=== PATIENT | male | born 1930 | race Caucasian/White ===

== ENCOUNTER 2017-08-01 20:05 | Inpatient (IN) | payer MEDICARE, BC ==
[~2017-08-01 20:05] MED LIST: LORazepam 2 MG/ML Syringe IVPUSH ONE
[2017-08-01 20:59] LABS: CHLORIDE,CL 102 mmol/L (101-111); SODIUM,NA 136 mmol/L (135-145)
--- NOTE | 2017-08-01 22:15 | EDM.PDOC ---
ED HPI GENERAL MEDICAL PROBLEM - General Chief Complaint: Neurological Problem Stated Complaint: [id number] falling a lot Time Seen by Provider: 08/01/17 20:50 Source of Information: Reports: Patient, Family, Old Records, RN Notes Reviewed History Limitations: Reports: Altered Mental Status (Confused) - History of Present Illness INITIAL COMMENTS - FREE TEXT/NARRATIVE: ED with daughter with report of increasing confusion, agitation and hallucinations. Tonight seeing people in room that were not there, seeing flying geese and sparrows one way here with daughter. Patient had been at home with until yesterday, has reported to be overwhelmed, unable to care for him and becoming afraid as his agitation increased. - Related Data Allergies Allergy/AdvReac Type Severity Reaction Status Date / Time adhesive tape Allergy Rash Verified 08/01/17 23:01 diltiazem [From Cardizem] Allergy Rash Verified 08/01/17 23:01 Home Meds: Home Meds Aspirin 325 mg PO DAILY 08/01/17 [History] Cholecalciferol (Vitamin D3) [Vitamin D3] 2,000 unit PO DAILY 08/01/17 [History] Clopidogrel [Plavix] 75 mg PO DAILY 08/01/17 [History] Docusate Sodium 100 mg PO BID 08/01/17 [History] Iron,Carbonyl/Ascorbic Acid [Vitron-C Tablet] 1 each PO DAILY 08/01/17 [History] Lisinopril 20 mg PO DAILY 08/01/17 [History] Nitroglycerin 0.4 mg SL ASDIRECTED 08/01/17 [History] Omeprazole 20 mg PO DAILY 08/01/17 [History] QUEtiapine [SEROquel] 25 mg PO BEDTIME 08/01/17 [History] Rivastigmine Tartrate [Rivastigmine] 4.6 mg PO DAILY 08/01/17 [History] Simvastatin [Zocor] 20 mg PO BEDTIME 08/01/17 [History] buPROPion [buPROPion XL] 300 mg PO BEDTIME 08/01/17 [History] Past Medical History Neurological History: Reports: CVA, Other (See Below) Other Neuro History: dementia Social & Family History - Tobacco Use Smoking Status *Q: Never Smoker Second Hand Smoke Exposure: No - Recreational Drug Use Recreational Drug Use: No ED ROS GENERAL - Review of Systems Review Of Systems: See Below Constitutional: Reports: Weight Loss, Other (reported refusing to change clothing) HEENT: Reports: No Symptoms, Glasses Respiratory: Reports: No Symptoms Cardiovascular: Reports: Dyspnea on Exertion GI/Abdominal: Reports: No Symptoms Musculoskeletal: Reports: Arm Pain (right elbow bruised from fall yesterday) Skin: Reports: Wound Neurological: Reports: Confusion, Pre-Existing Deficit ( confusion worsening, becoming more agitated), Gait Disturbance (balance worsening). Denies: Seizure Psychiatric: Reports: Confusion, Hallucinations, Mood Lability Immunologic: Reports: No Symptoms - Physical Exam Exam: See Below Exam Limited By: No Limitations General Appearance: Alert, No Apparent Distress, Thin, Other (unkempt) Eye Exam: Bilateral Eye: EOMI, PERRL (2) Ears: Normal External Exam, Normal TMs Nose: Normal Inspection Throat/Mouth: Normal Inspection, Other (mild dryness of membranes) Head Exam: Atraumatic, Normocephalic. No: Scalp Swelling, Scalp Ecchymosis, Scalp Hematoma Respiratory/Chest: No Respiratory Distress, Lungs Clear, Normal Breath Sounds Cardiovascular: Regular Rate, Rhythm GI/Abdominal: Normal Bowel Sounds Neuro Exam (Abbreviated): Alert, Oriented (person only), Inattentive, Memory Loss Remote Events, Memory Loss Recent Events. No: Normal Gait (unsteady) DTR: 2+: Patella (R), Patella (L) Extremities: Other (yellow reddish bruise to outer right elbow. full ROM) Psychiatric: Other (cooperative) Skin Exam: Warm, Dry, Intact, Wound/Incision (v shaped skin tear right outer forearm ) Course - Vital Signs Last Recorded V/S: Last Vital Signs Temp 97.1 F 08/01/17 22:44 Pulse 63 08/01/17 23:28 Resp 18 08/01/17 22:44 BP 157/77 H 08/01/17 23:28 Pulse Ox 96 08/01/17 22:44 - Orders/Labs/Meds Orders: Active Orders 24 hr Category Date Time Status Clopidogrel [Plavix] Med 08/02/17 09:00 Active 75 mg PO DAILY Lisinopril [Prinivil] Med 08/02/17 09:00 Active 20 mg PO DAILY Omeprazole Med 08/02/17 06:00 Active 20 mg PO ACBREAKFAST Rivastigmine [Exelon] Med 08/02/17 09:00 Active 4.5 mg PO DAILY Simvastatin [Zocor] Med 08/02/17 21:00 Active 20 mg PO BEDTIME buPROPion [Wellbutrin XL] Med 08/02/17 21:00 Active 300 mg PO BEDTIME Medication Orders Bupropion HCl (Wellbutrin Xl) 300 mg PO BEDTIME [facility] Clopidogrel Bisulfate (Plavix) 75 mg PO DAILY [facility] Enoxaparin Sodium (Lovenox) 40 mg SUBCUT DAILY [facility] Sodium Chloride (Normal Saline) 1,000 mls @ 75 mls/hr IV ASDIRECTED ROB Last Admin: 08/01/17 23:05 Dose: 125 mls/hr Lisinopril (Prinivil) 20 mg PO DAILY ROB Lorazepam (Ativan) 1 mg IVPUSH Q6H PRN PRN Reason: Agitation Omeprazole (Omeprazole) 20 mg PO ACBREAKFAST ROB Rivastigmine (Exelon) 4.5 mg PO DAILY [facility] Simvastatin (Zocor) 20 mg PO BEDTIME [facility] Labs: Laboratory Tests 08/01/17 08/01/17 08/01/17 Range/Units 20:20 20:34 20:34 WBC 6.4 (5.0-10.0) 10^3/uL RBC 4.09 L (4.6-6.2) 10^6/uL Hgb 12.2 L (14.0-18.0) g/dL Hct 36.7 L (40.0-54.0) % MCV 89.7 (80-100) fL MCH 29.8 (27.0-34.0) pg MCHC 33.2 (33.0-35.0) g/dL Plt Count 196 (150-450) 10^3/uL Neut % (Auto) 57.8 (42.2-75.2) % Lymph % (Auto) 22.5 (20.5-50.1) % [place] % (Auto) 10.6 H (2-8) % Eos % (Auto) 8.9 H (1.0-3.0) % Baso % (Auto) 0.2 (0.0-1.0) % Sodium 136 (135-145) mmol/L Potassium 4.0 (3.6-5.0) mmol/L Chloride 102 (101-111) mmol/L Carbon Dioxide 26.0 (21.0-31.0) mmol/L Anion Gap 12.0 BUN 23 H (7-18) mg/dL Creatinine 1.4 H (0.6-1.3) mg/dL Est Cr Clr Drug Dosing TNP Estimated GFR (MDRD) 48 BUN/Creatinine Ratio 16.42 Glucose 72 L (74-105) mg/dL Calcium 8.9 (8.4-10.2) mg/dl Magnesium (1.8-2.5) mg/dL Total Bilirubin 0.5 (0.2-1.0) mg/dL AST 23 (10-42) IU/L ALT 12 (10-60) IU/L Alkaline Phosphatase 105 (42-121) IU/L Ammonia (11-35) umol/L Creatine Kinase (26-174) IU/L Troponin I (0.00-0.02) ng/ml Total Protein 7.0 (6.7-8.2) g/dl Albumin 4.3 (3.2-5.5) g/dl Globulin 2.7 Albumin/Globulin Ratio 1.59 Urine Color Yellow (YELLOW) Urine Appearance Clear (CLEAR) Urine pH 5.0 (5.0-9.0) Ur Specific [place] 1.010 (1.005-1.030) Urine Protein Negative (NEGATIVE) Urine Glucose (UA) Negative (NEGATIVE) Urine Ketones Negative (NEGATIVE) Urine Occult Blood Negative (NEGATIVE) Urine Nitrite Negative (NEGATIVE) Urine Bilirubin Negative (NEGATIVE) Urine Urobilinogen 0.2 (0.2-1.0) mg/dL Ur Leukocyte Esterase Negative (NEGATIVE) Urine RBC Not seen /HPF Urine WBC 0-5 (0-5/HPF) /HPF Ur Epithelial Cells Rare /HPF Urine Bacteria Rare (0-FEW/HPF) /HPF 08/01/17 08/01/17 08/01/17 Range/Units 20:34 20:34 22:00 WBC (5.0-10.0) 10^3/uL RBC (4.6-6.2) 10^6/uL Hgb (14.0-18.0) g/dL Hct (40.0-54.0) % MCV (80-100) fL MCH (27.0-34.0) pg MCHC (33.0-35.0) g/dL Plt Count (150-450) 10^3/uL Neut % (Auto) (42.2-75.2) % Lymph % (Auto) (20.5-50.1) % [place] % (Auto) (2-8) % Eos % (Auto) (1.0-3.0) % Baso % (Auto) (0.0-1.0) % Sodium (135-145) mmol/L Potassium (3.6-5.0) mmol/L Chloride (101-111) mmol/L Carbon Dioxide (21.0-31.0) mmol/L Anion Gap BUN (7-18) mg/dL Creatinine (0.6-1.3) mg/dL Est Cr Clr Drug Dosing Estimated GFR (MDRD) BUN/Creatinine Ratio Glucose (74-105) mg/dL Calcium (8.4-10.2) mg/dl Magnesium 2.1 (1.8-2.5) mg/dL Total Bilirubin (0.2-1.0) mg/dL AST (10-42) IU/L ALT (10-60) IU/L Alkaline Phosphatase (42-121) IU/L Ammonia 26 (11-35) umol/L Creatine Kinase 174 (26-174) IU/L Troponin I 0.02 (0.00-0.02) ng/ml Total Protein (6.7-8.2) g/dl Albumin (3.2-5.5) g/dl Globulin Albumin/Globulin Ratio Urine Color (YELLOW) Urine Appearance (CLEAR) Urine pH (5.0-9.0) Ur Specific [place] (1.005-1.030) Urine Protein (NEGATIVE) Urine Glucose (UA) (NEGATIVE) Urine Ketones (NEGATIVE) Urine Occult Blood (NEGATIVE) Urine Nitrite (NEGATIVE) Urine Bilirubin (NEGATIVE) Urine Urobilinogen (0.2-1.0) mg/dL Ur Leukocyte Esterase (NEGATIVE) Urine RBC /HPF Urine WBC (0-5/HPF) /HPF Ur Epithelial Cells /HPF Urine Bacteria (0-FEW/HPF) /HPF Meds: Medications Generic Name Dose Route Start Last Admin Trade Name Freq PRN Reason Stop Dose Admin Bupropion HCl 300 mg 08/02/17 21:00 Wellbutrin Xl PO BEDTIME [facility] Clopidogrel Bisulfate 75 mg 08/02/17 09:00 Plavix PO DAILY [facility] Enoxaparin Sodium 40 mg 08/02/17 09:00 Lovenox SUBCUT DAILY ROB Sodium Chloride 1,000 mls @ 75 mls/hr 08/01/17 22:45 08/01/17 23:05 Normal Saline IV 125 mls/hr ASDIRECTED ROB Administration Lisinopril 20 mg 08/02/17 09:00 Prinivil PO DAILY ROB Lorazepam 1 mg 08/01/17 23:49 Ativan IVPUSH Q6H PRN Agitation Omeprazole 20 mg 08/02/17 06:00 Omeprazole PO ACBREAKFAST ROB Rivastigmine 4.5 mg 08/02/17 09:00 Exelon PO DAILY ROB Simvastatin 20 mg 08/02/17 21:00 Zocor PO BEDTIME ROB Discontinued Medications Generic Name Dose Route Start Last Admin Trade Name Freq PRN Reason Stop Dose Admin Hydralazine HCl 10 mg 08/01/17 22:53 08/01/17 23:09 Apresoline IVPUSH 08/01/17 22:54 10 mg ONETIME ONE Administration Departure - Departure Time of Disposition: 22:15 Disposition: Admitted As Inpatient 68 Condition: Fair Clinical Impression: Weight decreasing, Hallucination, visual, Agitation Dementia Qualifiers: Dementia type: unspecified type Dementia behavioral disturbance: with behavioral disturbance Qualified Code(s): F03.91 - Unspecified dementia with behavioral disturbance Fall Qualifiers: Encounter type: initial encounter Qualified Code(s): W19.XXXA - Unspecified fall, initial encounter - Discharge Information
[2017-08-01] MEDS ORDERED: hydrALAZINE 20 MG/ML SDV IVPUSH ONE (22:53)
[2017-08-01] MEDS: Sodium Chloride 0.9% 1,000 ML IV SCH (23:05)
--- NOTE | 2017-08-01 23:25 | PCM.HP ---
H&P History of Present Illness - General Date of Service: 08/01/17 Admit Problem/Dx: Admission Diagnosis/Problem Admission Diagnosis/Problem Altered mental status Source of Information: Family, Old Records - History of Present Illness Initial Comments - Free Text/Narative: Patient is an 86-year-old male admitted today because of frequent falls and worsening of sensorium. Today, patient had 3 falls. Has been having recurrent falls in the last 1 week. History is mainly supplied by the daughter. Patient has been having intermittent episodes of combativeness in the last 1 month. is not able to take care of him at home anymore. He was evaluated by neurologist. He was put on Seroquel in the last 1 month and family member did not note any improvement of the symptoms. Patient has not been sleeping good, actually has not slept in the last 2 days. They tried giving him Benadryl however he would only get sleep or calms him down for around 15 minutes. Was recently seen in [facility] 3 days prior to this admission after an episode of being combative to the daughter to the point that the used to call police. CAT scan of the brain did not show any new changes. His blood pressure has been elevated since then. No episodes of fever, chills, cough, diarrhea, vomiting. He had tolerated his meals however doesn't want to drink water just prefers to drink coffee. - Related Data Allergies/Adverse Reactions: Allergies Allergy/AdvReac Type Severity Reaction Status Date / Time adhesive tape Allergy Rash Verified 08/01/17 23:01 diltiazem [From Cardizem] Allergy Rash Verified 08/01/17 23:01 Home Medications: Home Meds Aspirin 325 mg PO DAILY 08/01/17 [History] Cholecalciferol (Vitamin D3) [Vitamin D3] 2,000 unit PO DAILY 08/01/17 [History] Clopidogrel [Plavix] 75 mg PO DAILY 08/01/17 [History] Docusate Sodium 100 mg PO BID 08/01/17 [History] Iron,Carbonyl/Ascorbic Acid [Vitron-C Tablet] 1 each PO DAILY 08/01/17 [History] Lisinopril 20 mg PO DAILY 08/01/17 [History] Nitroglycerin 0.4 mg SL ASDIRECTED 08/01/17 [History] Omeprazole 20 mg PO DAILY 08/01/17 [History] QUEtiapine [SEROquel] 25 mg PO BEDTIME 08/01/17 [History] Rivastigmine Tartrate [Rivastigmine] 4.6 mg PO DAILY 08/01/17 [History] Simvastatin [Zocor] 20 mg PO BEDTIME 08/01/17 [History] buPROPion [buPROPion XL] 300 mg PO BEDTIME 08/01/17 [History] Past Medical History Neurological History: Reports: CVA, Other (See Below) Other Neuro History: dementia Social & Family History - Tobacco Use Smoking Status *Q: Former Smoker Years of Tobacco use: 40 Packs/Tins Daily: 1 Used Tobacco, but Quit: Yes Month/Year Tobacco Last Used: 2012 Tobacco Use Comment: patient states he quit in 2012 Second Hand Smoke Exposure: No - Caffeine Use Caffeine Use: Reports: Coffee - Alcohol Use Days Per Week of Alcohol Use: 1 Number of Drinks Per Day: 1 Total Drinks Per Week: 1 - Recreational Drug Use Recreational Drug Use: No Exam - Vital Signs Vital Signs: Last Vital Signs Temp 97.8 F 08/01/17 20:08 Pulse 59 L 08/01/17 21:56 Resp 18 08/01/17 21:56 BP 188/91 H 08/01/17 21:56 Pulse Ox 96 08/01/17 21:56 Weight: 142 lb 11.2 oz - Patient Data Result Diagrams: 08/01/17 20:34 08/01/17 20:34 *Q Meaningful Use (ADM) - VTE *Q VTE Criteria *Q: - Stroke *Q Stroke Criteria *Q: - AMI *Q AMI Criteria *Q: Problem List Initiated/Reviewed/Updated: Yes Orders Last 24hrs: Medication Orders Bupropion HCl (Wellbutrin Xl) 300 mg PO BEDTIME [facility] Clopidogrel Bisulfate (Plavix) 75 mg PO DAILY [facility] Enoxaparin Sodium (Lovenox) 40 mg SUBCUT DAILY [facility] Sodium Chloride (Normal Saline) 1,000 mls @ 125 mls/hr IV ASDIRECTED [facility] Last Admin: 08/01/17 23:05 Dose: 125 mls/hr Lisinopril (Prinivil) 20 mg PO DAILY [facility] Omeprazole (Omeprazole) 20 mg PO ACBREAKFAST [facility] Rivastigmine (Exelon) 4.5 mg PO DAILY [facility] Simvastatin (Zocor) 20 mg PO BEDTIME [facility] Assessment/Plan Comment:: Altered mental status on the patient with underlying dementia; likely worsening of the underlying dementia - Rule out organic causes: So far blood for his unrevealing. - Admitted under medical surgical floor, fall precautions - Lorazepam IV as needed for combativeness Hypertension, uncontrolled - Hydralazine 10 mg IV, check blood pressure closely - Resume lisinopril Recurrent falls, consult physical therapy for assessment of ambulation RENAL insufficiency, unclear if chronic - Start normal saline 125 mL per hour - Check BMP tomorrow Dementia -Continued Rivastigmine CODE STATUS: Addressed with daughter, DNR/DNI DVT prophylaxis: Lovenox
[2017-08-01] MEDS ORDERED: LORazepam 2 MG/ML Syringe IVPUSH PRN (23:49)
[2017-08-02] MEDS ORDERED: diphenhydrAMINE 50 MG/ML SDV IVPUSH ONE (01:57)
[2017-08-02] MEDS ORDERED: LORazepam 2 MG/ML Syringe IVPUSH ONE (02:22)
[2017-08-02] MEDS ORDERED: OLANZapine 10 MG Vial IM STA (02:50)
[2017-08-02] MEDS: Omeprazole 20 MG Cap.CR PO SCH ×2 (06:33→14:26)
[2017-08-02] MEDS: Sodium Chloride 0.9% 1,000 ML IV SCH (10:48)
[2017-08-02] MEDS: Clopidogrel 75 MG Tab PO SCH (14:26)
[2017-08-02] MEDS: Lisinopril 20 MG Tab PO SCH (14:27)
[2017-08-02] MEDS: Enoxaparin 40 MG/0.4 ML Syringe SUBCUT SCH (14:27)
--- NOTE | 2017-08-02 14:30 | CT ---
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 Reevaluate please. Scan technique: Volume acquisition of data unenhanced CT scan of the head and brain obtained with the patient lying supine on the Siemens multi slice scanner [facility]. All data archived in the PACS system for storage/study. Interpretation: Abnormal, but current appearance unchanged since report 29 July 2017. 1. Uniformly thick bony calvarium without sign of skull fracture or underlying brain contusion or epi dural/subdural hematoma. 2. Generalized atrophy with underlying mirror-image normal ventricular system. 3. Extensive, chronic infarct (encephalomalacia) involving primarily the right parietal lobe, posteri arely. 4. Multiple scattered areas of decreased attenuation (infarcts) throughout the periventricular white matter both hemispheres. 5. No new supratentorial or posterior fossa mass lesion. Physiologic midline pineal and symmetric cho roid plexus calcifications. 6. No inflammatory changes of the paranasal or mastoid sinuses. 8. Cerebellum and brainstem unremarkable. 7. No sign of acute intracerebral, intraventricular, or subarachnoid bleed. CONCLUSION: No acute new intracranial abnormality since reports 29 July 2017 and "October 2012".
--- NOTE | 2017-08-02 15:19 | PCM.PN ---
- General Info Date of Service: 08/02/17 Subjective Update: Patient is an 86-year-old male admitted because of behavioral changes. Patient had an episode of combativeness last night. It took 3 staff to contain him. He was not responsive to Benadryl, lorazepam 3 mg. Was able to respond well to ziprasidone. Patient was noted to be sleeping up until lunchtime today. Able to tolerate fluids. Has not ambulated yet. Upon waking up today, he was able to follows commands. Was watching TV. Able to complete CAT scan of the brain today. - Patient Data Vitals - Most Recent: Last Vital Signs Temp 98.7 F 08/02/17 08:00 Pulse 66 08/02/17 08:00 Resp 20 08/02/17 08:00 BP 159/77 H 08/02/17 14:27 Pulse Ox 96 08/02/17 08:00 Weight - Most Recent: 142 lb 11.2 oz I&O - Last 24 Hours: Intake & Output 08/02/17 08/02/17 08/02/17 06:59 14:59 22:59 Intake Total 639 Output Total 1105 Balance -466 Med Orders - Current: Current Medications Bupropion HCl (Wellbutrin Xl) 300 mg PO BEDTIME [facility] Clopidogrel Bisulfate (Plavix) 75 mg PO DAILY [facility] Last Admin: 08/02/17 14:26 Dose: 75 mg Enoxaparin Sodium (Lovenox) 40 mg SUBCUT DAILY [facility] Last Admin: 08/02/17 14:27 Dose: 40 mg Sodium Chloride (Normal Saline) 1,000 mls @ 75 mls/hr IV ASDIRECTED [facility] Last Admin: 08/02/17 10:48 Dose: 125 mls/hr Lisinopril (Prinivil) 20 mg PO DAILY [facility] Last Admin: 08/02/17 14:27 Dose: 20 mg Omeprazole (Omeprazole) 20 mg PO ACBREAKFAST [facility] Last Admin: 08/02/17 14:26 Dose: 20 mg Rivastigmine (Exelon) 4.5 mg PO DAILY [facility] Last Admin: 08/02/17 14:26 Dose: 4.5 mg Simvastatin (Zocor) 20 mg PO BEDTIME [facility] Discontinued Medications Diphenhydramine HCl (Benadryl) 25 mg IVPUSH ONETIME ONE Stop: 08/02/17 01:58 Last Admin: 08/02/17 02:08 Dose: 25 mg Hydralazine HCl (Apresoline) 10 mg IVPUSH ONETIME ONE Stop: 08/01/17 22:54 Last Admin: 08/01/17 23:09 Dose: 10 mg Lorazepam (Ativan) 1 mg IVPUSH Q6H PRN PRN Reason: Agitation Last Admin: 08/02/17 01:36 Dose: 1 mg Lorazepam (Ativan) 5 mg IVPUSH ONETIME ONE Stop: 08/01/17 02:13 Last Admin: 08/02/17 03:45 Dose: Not Given Lorazepam (Ativan) 3 mg IVPUSH ONETIME ONE Stop: 08/02/17 02:23 Last Admin: 08/02/17 02:29 Dose: 3 mg Olanzapine (Zyprexa) 2.5 mg IM ONETIME STA Stop: 08/02/17 02:51 Last Admin: 08/02/17 02:58 Dose: 2.5 mg - Exam Lungs: Clear to Auscultation, Normal Respiratory Effort Cardiovascular: Regular Rate, Regular Rhythm GI/Abdominal Exam: Normal Bowel Sounds, Soft, Non-Tender Skin: Warm Psy/Mental Status: Agitated - Problem List Review Problem List Initiated/Reviewed/Updated: Yes - Plan Plan:: Behavioral changes other patient with underlying dementia which has been progressive. Repeat CAT scan today. Dr. Morales has taken the liberty to look into [facility]/geriatric facility that can take the patient but no availability. For now, we will reinitiate Seroquel 50 mg at night and in the event of the patient becomes combative, may consider doing Seroquel 25 mg. Fall precautions. We need to stabilize behavior of the patient before we can discharge to memory care in the local retirement. for now, continue with Rivastigmine. For now to continue normal saline at 75 mL per hour as the patient hasn't been eating that much due to the medications administered. Family members are aware, they were in the hospital this morning but did not wake up the patient as to avoid aggravating him. will continue lorazepam 2mg IV prn.
[2017-08-02] MEDS ORDERED: hydrALAZINE 20 MG/ML SDV IVPUSH ONE (16:13)
[2017-08-02] MEDS: LORazepam 2 MG/ML Syringe IVPUSH PRN ×2 (16:29→20:52)
[2017-08-02] MEDS: QUEtiapine 25 MG Tab PO SCH (20:51)
[2017-08-02] MEDS: buPROPion 150 MG Tab.ER PO SCH (20:52)
[2017-08-02] MEDS: Simvastatin 10 MG Tab PO SCH (20:52)
[2017-08-02] MEDS ORDERED: OLANZapine 10 MG Vial IM PRN (22:20)
[2017-08-03] MEDS: Sodium Chloride 0.9% 1,000 ML IV SCH ×2 (00:33→13:53)
[2017-08-03] MEDS: LORazepam 2 MG/ML Syringe IVPUSH PRN ×6 (01:32→23:23)
[2017-08-03] MEDS: Omeprazole 20 MG Cap.CR PO SCH (05:47)
[2017-08-03] MEDS: Enoxaparin 40 MG/0.4 ML Syringe SUBCUT SCH (10:24)
[2017-08-03] MEDS: Clopidogrel 75 MG Tab PO SCH (10:24)
[2017-08-03] MEDS: Lisinopril 20 MG Tab PO SCH (10:24)
--- NOTE | 2017-08-03 13:21 | PCM.PN ---
- General Info Date of Service: 08/03/17 Admission Dx/Problem (Free Text): Admission Diagnosis/Problem Admission Diagnosis/Problem Altered mental status Subjective Update: Patient is an 86-year-old male admitted because of behavioral changes. Patient had an episode of combativeness again last night. It took 3 staff to contain him. He was not responsive to Benadryl, lorazepam 3 mg. Was able to respond well to olanzapine 2.5 mg IM. Patient was noted to be sleeping but has no appetite and not eating well, he had only a little apple sauce and the medication given with apple sauce, I tried to wake him up and talk , he did not open his eyes.Able to tolerate fluids. Functional Status: Reports: Pain Controlled, Tolerating Diet, Urinating - Review of Systems General: Reports: Appetite (poor). Denies: Fever, Chills HEENT: Denies: Sore Throat, Visual Changes Cardiovascular: Denies: Chest Pain, Lightheadedness Gastrointestinal: Denies: Abdominal Pain, Difficulty Swallowing, Nausea, Vomiting Genitourinary: Denies: Dysuria, Frequency, Urgency Musculoskeletal: Denies: Neck Pain, Hand Pain, Foot Pain Neurological: Denies: Confusion, Headache, Tremors Psychiatric: Reports: Agitation - Patient Data Vitals - Most Recent: Last Vital Signs Temp 37.0 C 08/03/17 10:15 Pulse 68 08/03/17 10:15 Resp 20 08/03/17 10:15 BP 178/86 H 08/03/17 10:24 Pulse Ox 95 08/03/17 10:15 Weight - Most Recent: 64.728 kg I&O - Last 24 Hours: Intake & Output 08/02/17 08/03/17 08/03/17 22:59 06:59 14:59 Intake Total 120 1052 Balance 120 1052 Med Orders - Current: Current Medications Bupropion HCl (Wellbutrin Xl) 300 mg PO BEDTIME [facility] Last Admin: 08/02/17 20:52 Dose: 300 mg Clopidogrel Bisulfate (Plavix) 75 mg PO DAILY [facility] Last Admin: 08/03/17 10:24 Dose: 75 mg Enoxaparin Sodium (Lovenox) 40 mg SUBCUT DAILY [facility] Last Admin: 08/03/17 10:24 Dose: 40 mg Sodium Chloride (Normal Saline) 1,000 mls @ 75 mls/hr IV ASDIRECTED [facility] Last Admin: 08/03/17 00:33 Dose: 125 mls/hr Lisinopril (Prinivil) 20 mg PO DAILY [facility] Last Admin: 08/03/17 10:24 Dose: 20 mg Lorazepam (Ativan) 2 mg IVPUSH Q4H PRN PRN Reason: Agitation Last Admin: 08/03/17 10:47 Dose: 2 mg Olanzapine (Zyprexa) 2.5 mg IM ONETIME PRN PRN Reason: Agitation Last Admin: 08/02/17 22:47 Dose: 2.5 mg Omeprazole (Omeprazole) 20 mg PO ACBREAKFAST [facility] Last Admin: 08/03/17 05:47 Dose: 20 mg Quetiapine Fumarate (Seroquel) 50 mg PO BEDTIME [facility] Last Admin: 08/02/17 20:51 Dose: 50 mg Rivastigmine (Exelon) 4.5 mg PO DAILY [facility] Last Admin: 08/03/17 10:24 Dose: 4.5 mg Simvastatin (Zocor) 20 mg PO BEDTIME [facility] Last Admin: 08/02/17 20:52 Dose: 20 mg Discontinued Medications Diphenhydramine HCl (Benadryl) 25 mg IVPUSH ONETIME ONE Stop: 08/02/17 01:58 Last Admin: 08/02/17 02:08 Dose: 25 mg Hydralazine HCl (Apresoline) 10 mg IVPUSH ONETIME ONE Stop: 08/01/17 22:54 Last Admin: 08/01/17 23:09 Dose: 10 mg Hydralazine HCl (Apresoline) 10 mg IVPUSH ONETIME ONE Stop: 08/02/17 16:14 Last Admin: 08/02/17 16:29 Dose: 10 mg Lorazepam (Ativan) 1 mg IVPUSH Q6H PRN PRN Reason: Agitation Last Admin: 08/02/17 01:36 Dose: 1 mg Lorazepam (Ativan) 5 mg IVPUSH ONETIME ONE Stop: 08/01/17 02:13 Last Admin: 08/02/17 03:45 Dose: Not Given Lorazepam (Ativan) 3 mg IVPUSH ONETIME ONE Stop: 08/02/17 02:23 Last Admin: 08/02/17 02:29 Dose: 3 mg Olanzapine (Zyprexa) 2.5 mg IM ONETIME STA Stop: 08/02/17 02:51 Last Admin: 08/02/17 02:58 Dose: 2.5 mg - Exam Quality Assessment: DVT Prophylaxis. No: Supplemental Oxygen, Urine Catheter General: Alert, Other (combative at times). No: Oriented HEENT: Pupils Equal, Mucous Membr. Moist/[place] Neck: Supple, No JVD, No Thyromegaly Lungs: Clear to Auscultation, Normal Respiratory Effort GI/Abdominal Exam: Normal Bowel Sounds, Soft, Non-Tender. No: Guarding, Rigid, Rebound, Tender Back Exam: Normal Inspection Extremities: Normal Inspection, No Pedal Edema Skin: Warm, Dry, Intact Neurological: No New Focal Deficit Psy/Mental Status: Alert, Other (combative) - Problem List Review Problem List Initiated/Reviewed/Updated: Yes - My Orders Last 24 Hours: My Active Orders 08/02/17 22:20 OLANZapine [ZyPREXA] 2.5 mg IM ONETIME PRN - Plan Plan:: The pt is admitted with behaviriol changes, he needs psychiatric [facility] admission but all places tried were full and he is here for stabilization of his behavioral changes; Impression and Plan: Behavioral changes other patient with underlying dementia which has been progressive. Repeat CAT scan done on 08/02/17 showed no new Intracranial abnormality. Dr. Morales has taken the liberty to look into [facility]/ geriatric facility that can take the patient but no availability. For now, we will reinitiate Seroquel 50 mg at night and in the event of the patient becomes combative, may consider doing Seroquel 25 mg. Fall precautions. We need to stabilize behavior of the patient before we can discharge to memory care in the local fdc. for now, continue with Rivastigmine. For now to continue normal saline at 75 mL per hour as the patient hasn't been eating that much due to the medications administered. Family members are aware, they were in the hospital this morning but did not wake up the patient as to avoid aggravating him. will continue lorazepam 2mg IV prn.
[2017-08-03] MEDS ORDERED: OLANZapine 10 MG Vial IM PRN (16:11)
[2017-08-03] MEDS: buPROPion 150 MG Tab.ER PO SCH (20:05)
[2017-08-03] MEDS: Simvastatin 10 MG Tab PO SCH (20:06)
[2017-08-03] MEDS: QUEtiapine 25 MG Tab PO SCH (20:06)
[2017-08-04] MEDS ORDERED: OLANZapine 10 MG Vial IM ONE (00:19)
[2017-08-04] MEDS: Sodium Chloride 0.9% 1,000 ML IV SCH (02:58)
[2017-08-04] MEDS: Omeprazole 20 MG Cap.CR PO SCH (07:33)
[2017-08-04] MEDS: Clopidogrel 75 MG Tab PO SCH ×2 (07:37→08:27)
[2017-08-04] MEDS: Lisinopril 20 MG Tab PO SCH ×2 (07:38→08:27)
[2017-08-04] MEDS: LORazepam 2 MG/ML Syringe IVPUSH PRN ×2 (07:43→22:41)
[2017-08-04] MEDS ORDERED: Acetaminophen 325 MG Tab PO PRN (09:13)
[2017-08-04] MEDS ORDERED: Bisacodyl 10 MG Supp RECTAL PRN (09:17)
[2017-08-04] MEDS: Enoxaparin 40 MG/0.4 ML Syringe SUBCUT SCH (09:24)
[2017-08-04] MEDS: Dextrose 5%-0.9% NaCl 1,000 ML IV SCH ×2 (09:59→22:43)
[2017-08-04] MEDS ORDERED: QUEtiapine 25 MG Tab PO ONE (11:31)
--- NOTE | 2017-08-04 13:11 | PCM.PN ---
- General Info Date of Service: 08/04/17 Admission Dx/Problem (Free Text): Admission Diagnosis/Problem Admission Diagnosis/Problem Altered mental status Subjective Update: Patient is an 86-year-old male admitted because of behavioral changes. Patient had an episode of combativeness again last night. He was not responsive to Benadryl, lorazepam, respond well to olanzapine 2.5 mg IM. Patient was noted to be sleeping but has no appetite and not eating well, talk to daughter at bed site and she is feeding him ,the medication given with apple sauce, I tried to wake him up and talk , he did not open his eyes.Able to take fluids. Functional Status: Reports: Pain Controlled, Tolerating Diet, Urinating - Review of Systems General: Reports: Weakness, Appetite (poor). Denies: Fever, Chills HEENT: Denies: Sinus Congestion, Sore Throat, Visual Changes Pulmonary: Denies: Shortness of Breath, Cough, Wheezing Cardiovascular: Denies: Chest Pain, Lightheadedness Gastrointestinal: Reports: Constipation (NO BM for 3 days). Denies: Abdominal Pain, Difficulty Swallowing Genitourinary: Denies: Dysuria, Burning, Flank Pain Musculoskeletal: Denies: Neck Pain, Foot Pain Skin: Denies: Cyanosis, Jaundice Neurological: Reports: Confusion Psychiatric: Reports: Agitation - Patient Data Vitals - Most Recent: Last Vital Signs Temp 36.8 C 08/04/17 08:00 Pulse 66 08/04/17 08:00 Resp 16 08/04/17 08:00 BP 177/91 H 08/04/17 08:00 Pulse Ox 96 08/04/17 08:00 Weight - Most Recent: 61.054 kg I&O - Last 24 Hours: Intake & Output 08/03/17 08/04/17 08/04/17 22:59 06:59 14:59 Intake Total 692 717 275 Balance 692 717 275 Lab Results Last 24 Hours: Laboratory Results - last 24 hr 08/04/17 Range/Units 09:18 Sodium 140 (135-145) mmol/L Potassium 3.9 (3.6-5.0) mmol/L Chloride 107 (101-111) mmol/L Carbon Dioxide 23.0 (21.0-31.0) mmol/L Anion Gap 13.9 BUN 15 (7-18) mg/dL Creatinine 1.2 (0.6-1.3) mg/dL Est Cr Clr Drug Dosing 39.57 mL/min Estimated GFR (MDRD) 58 Glucose 73 L (74-105) mg/dL Calcium 9.0 (8.4-10.2) mg/dl Med Orders - Current: Current Medications Acetaminophen (Tylenol) 650 mg PO Q6H PRN PRN Reason: Pain Bisacodyl (Dulcolax) 10 mg RECTAL DAILY PRN PRN Reason: Constipation Bupropion HCl (Wellbutrin Xl) 150 mg PO BEDTIME [facility] Clopidogrel Bisulfate (Plavix) 75 mg PO DAILY [facility] Last Admin: 08/04/17 08:27 Dose: Not Given Enoxaparin Sodium (Lovenox) 40 mg SUBCUT DAILY [facility] Last Admin: 08/04/17 09:24 Dose: 40 mg Dextrose/Sodium Chloride (Dextrose 5%-Normal Saline) 1,000 mls @ 75 mls/hr IV ASDIRECTED [facility] Last Admin: 08/04/17 09:59 Dose: 75 mls/hr Lisinopril (Prinivil) 20 mg PO DAILY [facility] Last Admin: 08/04/17 08:27 Dose: Not Given Lorazepam (Ativan) 2 mg IVPUSH Q4H PRN PRN Reason: Agitation Last Admin: 08/04/17 07:43 Dose: 2 mg Olanzapine (Zyprexa) 2.5 mg IM BEDTIME PRN PRN Reason: Agitation Omeprazole (Omeprazole) 20 mg PO ACBREAKFAST [facility] Last Admin: 08/04/17 07:33 Dose: 20 mg Quetiapine Fumarate (Seroquel) 50 mg PO BEDTIME [facility] Last Admin: 08/03/17 20:06 Dose: 50 mg Quetiapine Fumarate (Seroquel) 25 mg PO DAILY [facility] Rivastigmine (Exelon) 3 mg PO DAILY [facility] Senna/Docusate Sodium (Senna Plus) 1 tab PO BEDTIME PRN PRN Reason: Constipation Simvastatin (Zocor) 20 mg PO BEDTIME [facility] Last Admin: 08/03/17 20:06 Dose: 20 mg Discontinued Medications Bupropion HCl (Wellbutrin Xl) 300 mg PO BEDTIME [facility] Last Admin: 08/03/17 20:05 Dose: 300 mg Diphenhydramine HCl (Benadryl) 25 mg IVPUSH ONETIME ONE Stop: 08/02/17 01:58 Last Admin: 08/02/17 02:08 Dose: 25 mg Hydralazine HCl (Apresoline) 10 mg IVPUSH ONETIME ONE Stop: 08/01/17 22:54 Last Admin: 08/01/17 23:09 Dose: 10 mg Hydralazine HCl (Apresoline) 10 mg IVPUSH ONETIME ONE Stop: 08/02/17 16:14 Last Admin: 08/02/17 16:29 Dose: 10 mg Sodium Chloride (Normal Saline) 1,000 mls @ 75 mls/hr IV ASDIRECTED [facility] Last Admin: 08/04/17 02:58 Dose: 75 mls/hr Lorazepam (Ativan) 1 mg IVPUSH Q6H PRN PRN Reason: Agitation Last Admin: 08/02/17 01:36 Dose: 1 mg Lorazepam (Ativan) 5 mg IVPUSH ONETIME ONE Stop: 08/01/17 02:13 Last Admin: 08/02/17 03:45 Dose: Not Given Lorazepam (Ativan) 3 mg IVPUSH ONETIME ONE Stop: 08/02/17 02:23 Last Admin: 08/02/17 02:29 Dose: 3 mg Olanzapine (Zyprexa) 2.5 mg IM ONETIME STA Stop: 08/02/17 02:51 Last Admin: 08/02/17 02:58 Dose: 2.5 mg Olanzapine (Zyprexa) 2.5 mg IM ONETIME PRN PRN Reason: Agitation Last Admin: 08/02/17 22:47 Dose: 2.5 mg Olanzapine (Zyprexa) 2.5 mg IM DAILY PRN PRN Reason: Agitation Last Admin: 08/03/17 16:43 Dose: 2.5 mg Olanzapine (Zyprexa) 2.5 mg IM ONETIME ONE Stop: 08/04/17 00:20 Last Admin: 08/04/17 00:41 Dose: 2.5 mg Quetiapine Fumarate (Seroquel) 25 mg PO ONETIME ONE Stop: 08/04/17 11:32 Rivastigmine (Exelon) 4.5 mg PO DAILY [facility] Last Admin: 08/04/17 08:27 Dose: Not Given - Exam Quality Assessment: DVT Prophylaxis. No: Supplemental Oxygen, Urine Catheter General: Alert, No Acute Distress, Other (not oriented) HEENT: Other (not opening eyes) Lungs: Clear to Auscultation, Normal Respiratory Effort Cardiovascular: Regular Rate, Regular Rhythm, Murmurs GI/Abdominal Exam: Normal Bowel Sounds, Soft, Non-Tender. No: Rigid, Rebound, Tender Back Exam: Normal Inspection Extremities: Normal Inspection, No Pedal Edema Skin: Warm, Dry, Intact Neurological: No New Focal Deficit Psy/Mental Status: Alert, Normal Affect, Normal Mood - Problem List Review Problem List Initiated/Reviewed/Updated: Yes - My Orders Last 24 Hours: My Active Orders 08/04/17 09:13 Acetaminophen [Tylenol] 650 mg PO Q6H PRN 08/04/17 09:15 Dextrose 5%-0.9% NaCl [Dextrose 5%-Normal Saline] 1,000 ml IV ASDIRECTED Docus[facility] Sodium/Sennosides [Senna Plus] 1 tab PO BEDTIME PRN 08/04/17 09:17 Bisacodyl [Dulcolax] 10 mg RECTAL DAILY PRN 08/04/17 11:36 buPROPion [Wellbutrin XL] 150 mg PO BEDTIME 08/04/17 11:45 Rivastigmine [Exelon] 3 mg PO DAILY 08/04/17 21:00 OLANZapine [ZyPREXA] 2.5 mg IM BEDTIME PRN 08/05/17 07:00 BASIC METABOLIC PANEL,BMP [CHEM] Routine CBC WITH AUTO DIFF [HEME] Routine - Plan Plan:: The pt is admitted with behaviriol changes, he needs psychiatric [facility] admission but all places tried were full and he is here for stabilization of his behavioral changes; Impression and Plan: 1. Aggressive Behavior Behavioral changes other patient with underlying dementia which has been progressive. Repeat CAT scan done on 08/02/17 showed no new Intracranial abnormality. Dr. Morales has taken the liberty to look into [facility]/ geriatric facility that can take the patient but no availability. For now, we will reinitiate Seroquel 50 mg at night and 25 mg in AM -Will decrease Bupropion to 150 mg daily -will also decrease Rivastigmine to 3 mg daily - the patient becomes combative at night and will continue olanzapine 2.5 Mg IM at night - Continue Fall precautions. We need to stabilize behavior of the patient before we can discharge to memory care in the local prison. - Will ontinue D5 normal saline at 75 mL per hour as the patient hasn't been eating - Family members are aware, they were in the hospital this morning - will continue lorazepam 2mg IV prn. 2. Hypertension: BP acceptable and will continue 20 mg daily 3. GI prophylaxis: Continue Protonix 20 mg IV daily 4.DVT prophylaxis: on enoxapain 4. Code Status: DNR/DNI
[2017-08-04] MEDS: LORazepam 1 MG Tab PO PRN ×2 (17:15→21:16)
[2017-08-04] MEDS: buPROPion 150 MG Tab.ER PO SCH (20:01)
[2017-08-04] MEDS: QUEtiapine 25 MG Tab PO SCH (20:01)
[2017-08-04] MEDS: Simvastatin 10 MG Tab PO SCH (20:02)
[2017-08-04] MEDS: OLANZapine 10 MG Vial IM PRN (21:55)
[2017-08-04] MEDS ORDERED: Haloperidol Lactate 5 MG/ML SDV IM ONE (22:49)
[2017-08-05] MEDS: LORazepam 2 MG/ML Syringe IVPUSH PRN ×2 (07:03→19:52)
[2017-08-05] MEDS ORDERED: Pantoprazole 40 MG Vial IVPUSH SCH (09:00)
[2017-08-05] MEDS ORDERED: Potassium Chloride 10 MEQ Tab.ER PO ONE (11:01)
[2017-08-05] MEDS: Lisinopril 20 MG Tab PO SCH (12:10)
[2017-08-05] MEDS: Omeprazole 20 MG Cap.CR PO SCH (12:10)
[2017-08-05] MEDS: Enoxaparin 40 MG/0.4 ML Syringe SUBCUT SCH (12:10)
[2017-08-05] MEDS: QUEtiapine 25 MG Tab PO SCH ×2 (12:10→20:09)
[2017-08-05] MEDS: Clopidogrel 75 MG Tab PO SCH (12:10)
[2017-08-05] MEDS: Dextrose 5%-0.9% NaCl 1,000 ML IV SCH (12:12)
[2017-08-05] MEDS: buPROPion 150 MG Tab.ER PO SCH (20:08)
[2017-08-05] MEDS: Simvastatin 10 MG Tab PO SCH (20:09)
[2017-08-05] MEDS: OLANZapine 10 MG Vial IM PRN (20:40)
[2017-08-05] MEDS ORDERED: LORazepam 1 MG Tab PO PRN (21:46)
[2017-08-05] MEDS ORDERED: OLANZapine 10 MG Vial IM ONE (22:45)
[2017-08-05] MEDS ORDERED: Haloperidol Lactate 2 MG/ML Oral Soln 15 ML Bottle PO ONE (23:57)
[2017-08-06] MEDS ORDERED: Haloperidol Lactate 2 MG/ML Oral Soln 15 ML Bottle PO ONE ×4 (01:15→11:30)
[2017-08-06] MEDS ORDERED: Cyanocobalamin (Vitamin B12) 1,000 MCG/ML SDV IM ONE (07:32)
[2017-08-06] MEDS: Clopidogrel 75 MG Tab PO SCH (08:56)
[2017-08-06] MEDS: Omeprazole 20 MG Cap.CR PO SCH (08:56)
[2017-08-06] MEDS: QUEtiapine 25 MG Tab PO SCH (08:57)
[2017-08-06] MEDS: Lisinopril 20 MG Tab PO SCH (08:57)
[2017-08-06] MEDS ORDERED: Potassium Chloride 10 MEQ Tab.ER PO ONE (11:04)
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
--- NOTE | 2017-08-19 19:17 | DISCH ---
DISCHARGE DIAGNOSES: 1. Dementia with increasing behaviors including paranoia, physical and verbal aggression, visual and aural hallucinations, increased confusion with sundowning. 2. Cerebrovascular disease, microvascular. 3. Mild hypokalemia. 4. Vitamin B12 deficiency. 5. Anemia. BRIEF HISTORY OF PRESENT ILLNESS: Mr. Mejia is an 87-year-old gentleman with a known history of cognitive impairment. His family was considering correction placement in a memory care unit, but his behaviors had become more uncontrolled in recent weeks, he had increased paranoid ideation, as well as increasing aggressive behaviors. He was having visual and aural hallucinations. He fell the evening of admission, he was brought to emergency room for evaluation and was admitted. PERTINENT LABS AND X-RAYS: CBC showed normal white count and platelets, hemoglobin and hematocrit were 12 and 35. Electrolytes were normal at admission and he developed a mild hypokalemia at 3.3, on day of discharge 3.4. He received oral potassium supplement. BUN and creatinine were 17 and 1.3 with a GFR of 53. LFTs were unremarkable. Urinalysis was negative. Additional labs were ordered to complete a dementia workup; these included TSH and T4, which were normal. Folic acid level was normal. Vitamin B12 level was low at 174 (180-914) pg/mL. RPR was nonreactive and hepatitis C antibody was nonreactive. A 12-lead EKG was performed at the time of admission, this showed a sinus bradycardia with a ventricular rate of 59. There were LVH criteria. There were nonspecific T-wave changes in the inferior leads and there were no acute ST-T wave changes. There was baseline artifact in the limb leads. A CT scan of the head was obtained during the admission and showed extensive cerebrovascular, microvascular disease primarily involving the right parietal lobe posteriorly. There were scattered infarction changes throughout both hemispheres. There was generalized atrophy. There were no acute findings or new findings compared to previous study done on July 29, 2017. HOSPITAL COURSE: Mr. Mejia was very difficult to manage. He had increasing physical behaviors. He was given multiple medications without good effect. He was given both benzodiazepine and antipsychotics at times. They would slow him down somewhat and he could sleep, but otherwise it was not possible to engage him during the admission. He was seen by the screener at the [facility]. We had called several hospitals looking for a geriatric psych bed and none were available. Therefore, an application was made to [facility] for admission. The required paperwork was filled out for emergency admission. As for transportation, it was felt that it was not safe for the family to transport him , as he became quite agitated at times. He was also an inappropriate transfer for [facility]. He was transferred by ground ambulance to [place] for his own personal safety. The medics will be able to medicate him en route. Over the weekend of admission, he had been receiving benzodiazepines, as well as antipsychotics. On the , we discontinued Zyprexa and lorazepam and went to Haldol solution. He was receiving 2 mg doses at that time and these seemed to help more with behavior and additionally with some sedation. He was found to be B12 deficient, and he was given 1 injection of 1000 mcg IM vitamin B12. This will need to be continued. During the admission, he was found to have large volume urinary retention. A Maxwell catheter was placed. It will remain in place for the transfer. On the day of discharge and transfer, review of his clinical data shows poor appetite. He was eating very poorly, mostly he would eat if he was fed or some favorite food was given to him. He had fair oral intake. He was voiding and moving his bowels. Maxwell catheter was in place. PHYSICAL EXAMINATION: Vital Signs: Were relatively stable and he was afebrile. General: On exam, he was confused. He did not participate in any meaningful way. Chest: Showed diminished bilateral breath sounds. Heart: Showed regular rate and rhythm. Abdomen: Benign. Neurological: There were no gross motor or sensory deficits. He was able to move all extremities, but was quite confused. IMPRESSION: An 87-year-old gentleman with known history of dementia with increasing behaviors over the last few weeks. PLAN: He will be transferred by ground ambulance to [facility] for further evaluation and for medication adjustment. Family hopes that when these issues have been addressed and hopefully resolved or better controlled, we will be able to place him in [place] in a memory care unit. CONDITION AT THE TIME OF TRANSFER: Hemodynamically stable. MODL /[id number] [facility]
== END 2017-08-06 11:50 | DRG 884 ==
LOC: DL.ED 20:05 → DL.MS 22:40 → UNDOADMIN 22:40 → DL.MS 22:44
PROVIDERS: ADMIT Internal Medicine; ATTEND Internal Medicine
DX: F03.91 Unspecified dementia, unspecified severity, with behavioral disturbance (principal); R44.1 Visual hallucinations; R63.4 Abnormal weight loss; I67.9 Cerebrovascular disease, unspecified; E87.6 Hypokalemia; D51.9 Vitamin B12 deficiency anemia, unspecified; R33.9 Retention of urine, unspecified; I10 Essential (primary) hypertension; Z88.8 Allergy status to other drugs, medicaments and biological substances; Z79.899 Other long term (current) drug therapy; Z79.82 Long term (current) use of aspirin; Z86.73 Personal history of transient ischemic attack (TIA), and cerebral infarction without residual deficits; Z87.891 Personal history of nicotine dependence; Z66 Do not resuscitate; W18.30XA Fall on same level, unspecified, initial encounter; Y92.019 Unspecified place in single-family (private) house as the place of occurrence of the external cause
CPT/HCPCS: 36415; 51702; 70450; 80048; 80053; 81001; 82140; 82550; 82607; 82746; 83735; 84132; 84436; 84443; 84484; 85025; 86592; 86803; 93005; 93010; 99284; 99285; A9270-GY; J0360; J1200; J1630; J1650; J2060; J3420; J7030; J7042; Q9967; S0166